=== PATIENT | male | born 1985 | race Caucasian/White ===

== ENCOUNTER 2023-02-15 23:56 | Emergency (ER) | payer BC ==
[~2023-02-15] VITALS: Ht 175.3 cm; Wt 70.3 kg
[2023-02-16] MEDS ORDERED: FLUORESCEIN SODIUM OPHTH 1 EA STRIP ONE (00:53)
[2023-02-16] MEDS ORDERED: [UNRECOGNIZED DRUG - CODE] OP (01:31)
[2023-02-16] MEDS ORDERED: ERYT3.5O9 EACHEYE (01:31)
[2023-02-16 01:38] VITALS: BP 110/63
== END 2023-02-16 01:41 | disposition home or self-care (01) ==
LOC: ER 23:59
DX: S05.02XA Injury of conjunctiva and corneal abrasion without foreign body, left eye, initial encounter (principal); Z79.899 Other long term (current) drug therapy; Z60.2 Problems related to living alone; X58.XXXA Exposure to other specified factors, initial encounter; Y93.89 Activity, other specified; Y92.89 Other specified places as the place of occurrence of the external cause; Y99.8 Other external cause status